=== PATIENT | female | born 1995 | race Caucasian/White ===

== ENCOUNTER 2016-09-28 09:04 | Emergency (ER) | payer SELFPAY ==
--- NOTE | 2016-09-28 09:13 | EDM.PDOC ---
ED HPI GENERAL MEDICAL PROBLEM - General Chief Complaint: ENT Problem Stated Complaint: PT HAS EARACHE Time Seen by Provider: 09/28/16 09:10 - History of Present Illness INITIAL COMMENTS - FREE TEXT/NARRATIVE: HISTORY AND PHYSICAL: History of present illness: Agent 21-year-old female presents with concern of right ear pain and right throat pain she denies fever chills nausea should she awoke with this. Review of systems: As per history of present illness and below otherwise all systems reviewed and negative. Past medical history: As per history of present illness and as reviewed below otherwise noncontributory. Surgical history: As per history of present illness and as reviewed below otherwise noncontributory. Social history: No reported history of drug or alcohol abuse. Family history: As per history of present illness and as reviewed below otherwise noncontributory. Physical exam: HEENT: Atraumatic, normocephalic, pupils reactive, negative for conjunctival pallor or scleral icterus, mucous membranes moist, throat clear, neck supple, nontender, trachea midline. TM normal bilaterally Lungs: Clear to auscultation, breath sounds equal bilaterally, chest nontender. Heart: S1S2, regular, negative for clicks, rubs, or JVD. Abdomen: Soft, nondistended, nontender. Negative for masses or hepatosplenomegaly. Negative for costovertebral tenderness. Pelvis: Stable nontender. Genitourinary: Deferred. Rectal: Deferred. Extremities: Atraumatic, negative for cords or calf pain. Neurovascular unremarkable. Neuro: Awake, alert, oriented. Cranial nerves II through XII unremarkable. Cerebellum unremarkable. Motor and sensory unremarkable throughout. Exam nonfocal. Diagnostics: Rapid strep Therapeutics: None Impression: #1 right otalgia #2 sore throat Definitive disposition and diagnosis as appropriate pending reevaluation and review of above. - Related Data Allergies Allergy/AdvReac Type Severity Reaction Status Date / Time amoxicillin trihydrate Allergy Anaphylactic Verified 09/28/16 09:09 [From Augmentin] Shock Cephalosporins Allergy Other Verified 09/28/16 09:09 ketorolac [From Toradol] Allergy Anaphylactic Verified 09/28/16 09:09 Shock Penicillins Allergy Anaphylactic Verified 09/28/16 09:09 Shock potassium clavulanate Allergy Anaphylactic Verified 09/28/16 09:09 [From Augmentin] Shock Home Meds: Home Meds . 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: , Other (See Below) Other OB/BYN History: miscarriage Neurological History: Reports: Other (See Below) Other Neuro History: syncope Psychiatric History: Reports: Anxiety, Depression Endocrine/Metabolic History: Reports: None Hematologic History: Reports: None Immunologic History: Reports: None Oncologic (Cancer) History: Reports: None Dermatologic History: Reports: None - Infectious Disease History Infectious Disease History: Reports: Chicken Pox Other Infectious Disease History: childhood - Past Surgical History Musculoskeletal Surgical History: Reports: Arthroscopic Procedure Social & Family History - Family History Family Medical History: Noncontributory - Tobacco Use Smoking Status *Q: Current Every Day Smoker Years of Tobacco use: 2 Packs/Tins Daily: 1 Used Tobacco, but Quit: No Second Hand Smoke Exposure: No - Alcohol Use Days Per Week of Alcohol Use: 0 - Recreational Drug Use Recreational Drug Use: No ED ROS GENERAL - Review of Systems Review Of Systems: ROS reveals no pertinent complaints other than HPI. ED EXAM, GENERAL - Physical Exam Exam: See Below (See dictation) Departure - Departure Time of Disposition: 09:13 Disposition: Home, Self-Care 01 Condition: Good Clinical Impression: Otalgia, Sore throat - Discharge Information Forms: ED Department Discharge Additional Instructions: The following information is given to patients seen in the emergency department who are being discharged to home. This information is to outline your options for follow-up care. We provide all patients seen in our emergency department with a follow-up referral. The need for follow-up, as well as the timing and circumstances, are variable depending upon the specifics of your emergency department visit. If you don't have a primary care physician on staff, we will provide you with a referral. We always advise you to contact your personal physician following an emergency department visit to inform them of the circumstance of the visit and for follow-up with them and/or the need for any referrals to a consulting specialist. The emergency department will also refer you to a specialist when appropriate. This referral assures that you have the opportunity for followup care with a specialist. All of these measure are taken in an effort to provide you with optimal care, which includes your followup. Under all circumstances we always encourage you to contact your private physician who remains a resource for coordinating your care. When calling for followup care, please make the office aware that this follow-up is from your recent emergency room visit. If for any reason you are refused follow-up, please contact the [facility] emergency department at and asked to speak to the emergency department charge nurse Sangeeta as directed follow-up primary medical doctor 1 today's return as needed as discussed]
[2016-09-28 10:01] VITALS: BP 139/65
== END 2016-09-28 09:56 | disposition home or self-care (01) ==
LOC: MW.ED 09:04
DX: J02.9 Acute pharyngitis, unspecified (principal); H92.01 Otalgia, right ear; Z88.1 Allergy status to other antibiotic agents; Z88.0 Allergy status to penicillin; F32.9 Major depressive disorder, single episode, unspecified; F41.9 Anxiety disorder, unspecified; Z98.890 Other specified postprocedural states; F17.210 Nicotine dependence, cigarettes, uncomplicated
CPT/HCPCS: 87081; 87880; 99282; 99283

== ENCOUNTER 2017-01-14 16:33 | Emergency (ER) | payer MEDICAID ==
--- NOTE | 2017-01-14 17:17 | EDM.PDOC ---
ED HPI GENERAL MEDICAL PROBLEM - General Chief Complaint: ENT Problem Stated Complaint: PAIN RT SIDE FACE Time Seen by Provider: 01/14/17 16:59 Source of Information: Reports: Patient History Limitations: Reports: No Limitations - History of Present Illness INITIAL COMMENTS - FREE TEXT/NARRATIVE: History of present illness: []Patient's had right-sided facial pain, ear pain and sore throat for 4 days. As her worsening she denies any fevers, chills, nausea or vomiting. There is no drainage from Peter denies any numbness or tingling. Review of systems: As per history of present illness and below otherwise all systems reviewed and negative. Past medical history: As per history of present illness and as reviewed below otherwise noncontributory. Surgical history: As per history of present illness and as reviewed below otherwise noncontributory. Social history: No reported history of drug or alcohol abuse. Family history: As per history of present illness and as reviewed below otherwise noncontributory. Physical exam: General: Well developed, well nourished in NAD HEENT: Atraumatic, normocephalic, pupils reactive, negative for conjunctival pallor or scleral icterus, mucous membranes moist, throat clear, neck supple, nontender, trachea midline. Right TM with purulent fluid behind it EAC is erythematous and very tender on exam. Lungs: Clear to auscultation, breath sounds equal bilaterally, chest nontender. Heart: S1S2, regular, negative for clicks, rubs, or JVD. Abdomen: Soft, nondistended, nontender. Negative for masses or hepatosplenomegaly. Negative for costovertebral tenderness. Pelvis: Stable nontender. Genitourinary: Deferred. Rectal: Deferred. Extremities: Atraumatic, negative for cords or calf pain. Neurovascular unremarkable. Neuro: Awake, alert, oriented. Cranial nerves II through XII unremarkable. Cerebellum unremarkable. Motor and sensory unremarkable throughout. Exam nonfocal. Diagnostics: [] Therapeutics: [] Impression: []Otitis media, otitis externa right Plan: []Z-Madhav Definitive disposition and diagnosis as appropriate pending reevaluation and review of above. Right Ear Pain Score (Numeric/FACES): 7 - Related Data Allergies Allergy/AdvReac Type Severity Reaction Status Date / Time amoxicillin trihydrate Allergy Anaphylactic Verified 01/14/17 16:41 [From Augmentin] Shock Cephalosporins Allergy Other Verified 01/14/17 16:41 ketorolac [From Toradol] Allergy Anaphylactic Verified 01/14/17 16:41 Shock latex Allergy Hives Verified 01/14/17 16:41 Penicillins Allergy Anaphylactic Verified 01/14/17 16:41 Shock potassium clavulanate Allergy Anaphylactic Verified 01/14/17 16:41 [From Augmentin] Shock Home Meds: Home Meds Azithromycin [Zithromax] 250 mg PO DAILY #6 tablet 01/14/17 [Rx] Past Medical History Cardiovascular History: Reports: Syncope Respiratory History: Reports: None Gastrointestinal History: Reports: None Genitourinary History: Reports: Other (See Below) Other Genitourinary History: UTI 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: , Other (See Below) Other OB/BYN History: miscarriage Neurological History: Reports: Other (See Below) Other Neuro History: syncope Psychiatric History: Reports: Anxiety, Depression Endocrine/Metabolic History: Reports: None Hematologic History: Reports: None Immunologic History: Reports: None Oncologic (Cancer) History: Reports: None Dermatologic History: Reports: None - Infectious Disease History Infectious Disease History: Reports: Chicken Pox Other Infectious Disease History: childhood - Past Surgical History HEENT Surgical History: Reports: Adenoidectomy, Tonsillectomy Musculoskeletal Surgical History: Reports: Arthroscopic Procedure Social & Family History - Family History Family Medical History: Noncontributory - Tobacco Use Smoking Status *Q: Current Every Day Smoker Years of Tobacco use: 5 Packs/Tins Daily: 1 Used Tobacco, but Quit: No Second Hand Smoke Exposure: No - Caffeine Use Caffeine Use: Reports: None - Alcohol Use Days Per Week of Alcohol Use: 0 - Recreational Drug Use Recreational Drug Use: No ED ROS ENT - Review of Systems Review Of Systems: See Below (See history of present illness) ED EXAM, ENT - Physical Exam Exam: See Below (See history of present illness) Course - Vital Signs Last Recorded V/S: Last Vital Signs Temp 37.2 C 01/14/17 16:42 Pulse 83 01/14/17 16:42 Resp 16 01/14/17 16:42 BP 138/77 01/14/17 16:42 Pulse Ox 99 01/14/17 16:42 Departure - Departure Time of Disposition: 17:21 Disposition: Home, Self-Care 01 Condition: Good Clinical Impression: Right otitis media Qualifiers: Otitis media type: suppurative Chronicity: acute Recurrence: not specified as recurrent Spontaneous tympanic membrane rupture: without spontaneous rupture Qualified Code(s): H66.001 - Acute suppurative otitis media without spontaneous rupture of ear drum, right ear - Discharge Information Referrals: Erinn Lee ICT QUALITY ASSURANCE ENGINEER [Primary Care Provider] - Forms: ED Department Discharge Additional Instructions: The following information is given to patients seen in the emergency department who are being discharged to home. This information is to outline your options for follow-up care. We provide all patients seen in our emergency department with a follow-up referral. The need for follow-up, as well as the timing and circumstances, are variable depending upon the specifics of your emergency department visit. If you don't have a primary care physician on staff, we will provide you with a referral. We always advise you to contact your personal physician following an emergency department visit to inform them of the circumstance of the visit and for follow-up with them and/or the need for any referrals to a consulting specialist. The emergency department will also refer you to a specialist when appropriate. This referral assures that you have the opportunity for follow-up care with a specialist. All of these measure are taken in an effort to provide you with optimal care, which includes your follow-up. Under all circumstances we always encourage you to contact your private physician who remains a resource for coordinating your care. When calling for follow-up care, please make the office aware that this follow-up is from your recent emergency room visit. If for any reason you are refused follow-up, please contact the [facility] Emergency Department at and asked to speak to the emergency department charge nurse. Zithromax as directed Tylenol Motrin for pain control also use warm packs to the ear follow-up with primary care [facility] [address] [place] [id number]
[2017-01-14 17:47] VITALS: BP 121/63
== END 2017-01-14 17:45 | disposition home or self-care (01) ==
LOC: MW.ED 16:33
DX: H60.91 Unspecified otitis externa, right ear (principal); H66.001 Acute suppurative otitis media without spontaneous rupture of ear drum, right ear; Z88.0 Allergy status to penicillin; Z88.8 Allergy status to other drugs, medicaments and biological substances; F17.210 Nicotine dependence, cigarettes, uncomplicated
CPT/HCPCS: 99282

== ENCOUNTER 2017-04-01 11:17 | Emergency (ER) | payer BC ==
[2017-04-01 11:41] VITALS: BP 128/81
[2017-04-01] MEDS ORDERED: Ibuprofen 600 MG Tab PO ONE (12:00)
--- NOTE | 2017-04-01 13:26 | EDM.PDOC ---
ED HPI GENERAL MEDICAL PROBLEM - General Chief Complaint: General Stated Complaint: SICK Time Seen by Provider: 04/01/17 11:55 Source of Information: Reports: Patient History Limitations: Reports: No Limitations - History of Present Illness INITIAL COMMENTS - FREE TEXT/NARRATIVE: History of present illness: []Patient states she has history of seizure disorder and she feels like she's going to have a seizure.SHe is not on any seizure medications and her last seizure was January 2016. Patient has had an EEG that was read as normal. He should states she has a headache no vomiting or diarrhea no fevers or chills she has had a cough and cold symptoms and her mother has influenza A. Requesting an influenza test. Review of systems: As per history of present illness and below otherwise all systems reviewed and negative. Past medical history: As per history of present illness and as reviewed below otherwise noncontributory. Surgical history: As per history of present illness and as reviewed below otherwise noncontributory. Social history: No reported history of drug or alcohol abuse. Family history: As per history of present illness and as reviewed below otherwise noncontributory. Physical exam: General: Well developed, well nourished in NAD HEENT: Atraumatic, normocephalic, pupils reactive, negative for conjunctival pallor or scleral icterus, mucous membranes moist, throat clear, neck supple, nontender, trachea midline. Lungs: Clear to auscultation, breath sounds equal bilaterally, chest nontender. Heart: S1S2, regular, negative for clicks, rubs, or JVD. Abdomen: Soft, nondistended, nontender. Negative for masses or hepatosplenomegaly. Negative for costovertebral tenderness. Pelvis: Stable nontender. Genitourinary: Deferred. Rectal: Deferred. Extremities: Atraumatic, negative for cords or calf pain. Neurovascular unremarkable. Neuro: Awake, alert, oriented. Cranial nerves II through XII unremarkable. Cerebellum unremarkable. Motor and sensory unremarkable throughout. Exam nonfocal. Diagnostics: []Glucose 88, Nadine a negative Therapeutics: [] Impression: []Viral syndrome Plan: []Follow-up to primary care for further treatment. Definitive disposition and diagnosis as appropriate pending reevaluation and review of above. headache Pain Score (Numeric/FACES): 5 - Related Data Allergies Allergy/AdvReac Type Severity Reaction Status Date / Time amoxicillin trihydrate Allergy Anaphylactic Verified 04/01/17 11:37 [From Augmentin] Shock Cephalosporins Allergy Other Verified 04/01/17 11:37 ketorolac [From Toradol] Allergy Anaphylactic Verified 04/01/17 11:37 Shock latex Allergy Hives Verified 04/01/17 11:37 Penicillins Allergy Anaphylactic Verified 04/01/17 11:37 Shock potassium clavulanate Allergy Anaphylactic Verified 04/01/17 11:37 [From Augmentin] Shock Home Meds: Home Meds . 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: , Other (See Below) Other OB/BYN History: miscarriage Neurological History: Reports: Other (See Below) Other Neuro History: syncope Psychiatric History: Reports: Anxiety, Depression Endocrine/Metabolic History: Reports: None Hematologic History: Reports: None Immunologic History: Reports: None Oncologic (Cancer) History: Reports: None Dermatologic History: Reports: None - Infectious Disease History Infectious Disease History: Reports: Chicken Pox Other Infectious Disease History: childhood - Past Surgical History HEENT Surgical History: Reports: Adenoidectomy, Tonsillectomy Cardiovascular Surgical History: Reports: None Musculoskeletal Surgical History: Reports: Arthroscopic Procedure Social & Family History - Family History Family Medical History: Noncontributory - Tobacco Use Smoking Status *Q: Current Every Day Smoker Years of Tobacco use: 4 Packs/Tins Daily: 0.5 Used Tobacco, but Quit: No Second Hand Smoke Exposure: No - Caffeine Use Caffeine Use: Reports: None - Alcohol Use Days Per Week of Alcohol Use: 0 - Recreational Drug Use Recreational Drug Use: No ED ROS GENERAL - Review of Systems Review Of Systems: See Below (See history of present illness) ED EXAM, GENERAL - Physical Exam Exam: See Below (See history of present illness) Course - Vital Signs Last Recorded V/S: Last Vital Signs Temp 98.5 F 04/01/17 11:38 Pulse 79 04/01/17 11:38 Resp 16 04/01/17 11:38 BP 128/81 04/01/17 11:38 Pulse Ox 98 04/01/17 11:38 - Orders/Labs/Meds Orders: Active Orders 24 hr Category Date Time Status POC Glucose [Blood Glucose Check, Bedside] [] ONETIME Care 04/01/17 11:46 Active Labs: Laboratory Tests 04/01/17 Range/Units 12:12 POC Glucose 88 (60-110) mg/dL Meds: Medications Discontinued Medications Generic Name Dose Route Start Last Admin Trade Name Marcelle PRN Reason Stop Dose Admin Ibuprofen 600 mg 04/01/17 12:00 04/01/17 12:09 Motrin PO 04/01/17 12:01 600 mg ONETIME ONE Administration Departure - Departure Time of Disposition: 13:24 Disposition: Home, Self-Care 01 Condition: Good Clinical Impression: Viral syndrome, Cephalgia - Discharge Information Referrals: Erinn Lee NP [Primary Care Provider] - Additional Instructions: The following information is given to patients seen in the emergency department who are being discharged to home. This information is to outline your options for follow-up care. We provide all patients seen in our emergency department with a follow-up referral. The need for follow-up, as well as the timing and circumstances, are variable depending upon the specifics of your emergency department visit. If you don't have a primary care physician on staff, we will provide you with a referral. We always advise you to contact your personal physician following an emergency department visit to inform them of the circumstance of the visit and for follow-up with them and/or the need for any referrals to a consulting specialist. The emergency department will also refer you to a specialist when appropriate. This referral assures that you have the opportunity for follow-up care with a specialist. All of these measure are taken in an effort to provide you with optimal care, which includes your follow-up. Under all circumstances we always encourage you to contact your private physician who remains a resource for coordinating your care. When calling for follow-up care, please make the office aware that this follow-up is from your recent emergency room visit. If for any reason you are refused follow-up, please contact the [facility] Emergency Department at and asked to speak to the emergency department charge nurse. Use Excedrin migraine or generic for headache. Increase fluids, Follow-up with her primary care for further Care. - My Orders Last 24 Hours: My Active Orders 04/01/17 11:46 POC Glucose [Blood Glucose Check, Bedside] [RC] ONETIME - Assessment/Plan Last 24 Hours: My Active Orders 04/01/17 11:46 POC Glucose [Blood Glucose Check, Bedside] [RC] ONETIME
== END 2017-04-01 13:34 | disposition home or self-care (01) ==
LOC: MW.ED 11:17
DX: B34.9 Viral infection, unspecified (principal); F17.210 Nicotine dependence, cigarettes, uncomplicated; Z88.1 Allergy status to other antibiotic agents; Z88.6 Allergy status to analgesic agent; Z88.8 Allergy status to other drugs, medicaments and biological substances; Z91.040 Latex allergy status; Z88.0 Allergy status to penicillin
CPT/HCPCS: 82962; 87804; 99283; A9270; 99282

== ENCOUNTER 2017-05-17 15:21 | Emergency (ER) | payer BC, OTHER ==
[2017-05-17 15:57] VITALS: BP 137/72
--- NOTE | 2017-05-17 15:59 | EDM.PDOC ---
ED HPI GENERAL MEDICAL PROBLEM - General Chief Complaint: Lower Extremity Injury/Pain Stated Complaint: RT KNEE PAIN Time Seen by Provider: 05/17/17 15:56 Source of Information: Reports: Patient History Limitations: Reports: No Limitations - History of Present Illness INITIAL COMMENTS - FREE TEXT/NARRATIVE: HISTORY AND PHYSICAL: 21-year-old female presenting with right knee pain left elbow pain History of Present Illness: []Patient fell last night at work tripped on a cord from the back of the [employer] cell [employer]. She fell onto her right knee and left elbow . Review of Systems: As per history of present illness and below otherwise all systems reviewed and negative. Past medical history: As per history of present illness and as reviewed below otherwise noncontributory. Surgical history: As per history of present illness and as reviewed below otherwise noncontributory. Social history: No reported history of drug or alcohol abuse. Family history: As per history of present illness and as reviewed below otherwise noncontributory. Physical exam: No loss of consciousness and did not hit her head alert and oriented female answering questions appropriately she states that her left elbow does not hurt as much. HEENT: Atraumatic, normocehpalic, pupils reactive, negative for conjunctival pallor or scleral icterus, mucous membranes moist, throat clear, neck supple, nontender, trachea midline. Lungs: Clear to auscultation, breath sounds equal bilaterally, chest non tender. Heart: S1S2, regular, negative for clicks, rubs, or JVD. Abdomen: Soft, nondistended, nontender. Negative for masses or hepatossplenmegaly. Negative for costovertebral tenderness. Pelvis: Stable nontender. Genitourinary: Deferred. Rectal: Deferred Extremities: Atraumatic, negative for cords or calf pain. Neurovascular unremarkable. Neuro: Awake, alert, oriented. Cranial nerves II through XII unremarkable. Cerebellum unremarkable. Motor and sensory unremarkable throughout. Exam nonfocal. Discussed the results with the patient and friend with her. No fractures were noted on x-rays. Diagnostics: [X-ray right knee History left elbow] Therapeutics: [] Impression: [Contusions knee and elbow] Plan: [Discharged to home Rasta wrap to her knee for comfort measures You were given hydrocodone in the ER For pain at home ibuprofen 3 tablets 3 times daily] Definitive disposition and diagnosis as appropriate pending reevaluation and review of above. Onset: Sudden Duration: Day(s): (1) Location: Reports: Upper Extremity, Left, Lower Extremity, Right Quality: Reports: Throbbing Severity: Moderate Improves with: Reports: None Worsens with: Reports: None right knee Pain Score (Numeric/FACES): 10 - Related Data Allergies Allergy/AdvReac Type Severity Reaction Status Date / Time amoxicillin trihydrate Allergy Anaphylactic Verified 05/17/17 15:54 [From Augmentin] Shock Cephalosporins Allergy Other Verified 05/17/17 15:54 ketorolac [From Toradol] Allergy Anaphylactic Verified 05/17/17 15:54 Shock latex Allergy Hives Verified 05/17/17 15:54 Penicillins Allergy Anaphylactic Verified 05/17/17 15:54 Shock potassium clavulanate Allergy Anaphylactic Verified 05/17/17 15:54 [From Augmentin] Shock Home Meds: Home Meds . 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: , Other (See Below) Other OB/BYN History: miscarriage Neurological History: Reports: Other (See Below) Other Neuro History: syncope Psychiatric History: Reports: Anxiety, Depression Endocrine/Metabolic History: Reports: None Hematologic History: Reports: None Immunologic History: Reports: None Oncologic (Cancer) History: Reports: None Dermatologic History: Reports: None - Infectious Disease History Infectious Disease History: Reports: Chicken Pox Other Infectious Disease History: childhood - Past Surgical History HEENT Surgical History: Reports: Adenoidectomy, Tonsillectomy Cardiovascular Surgical History: Reports: None Musculoskeletal Surgical History: Reports: Arthroscopic Procedure Social & Family History - Family History Family Medical History: Noncontributory - Tobacco Use Smoking Status *Q: Current Every Day Smoker Years of Tobacco use: 4 Packs/Tins Daily: 0.5 Used Tobacco, but Quit: No Second Hand Smoke Exposure: No - Caffeine Use Caffeine Use: Reports: None - Alcohol Use Days Per Week of Alcohol Use: 0 - Recreational Drug Use Recreational Drug Use: No Review of Systems - Review of Systems Review Of Systems: ROS reveals no pertinent complaints other than HPI. ED EXAM, GENERAL - Physical Exam Exam: See Below (see dictation) Course - Vital Signs Last Recorded V/S: Last Vital Signs Temp 36.4 C 05/17/17 15:54 Pulse 84 05/17/17 15:54 Resp 18 05/17/17 15:54 BP 137/72 05/17/17 15:54 Pulse Ox 98 05/17/17 15:54 - Orders/Labs/Meds Orders: Active Orders 24 hr Category Date Time Status Splinting [RC] ASDIRECTED Care 05/17/17 18:10 Ordered Elbow 2V Lt [CR] Stat Exams 05/17/17 16:01 Taken Knee 3V Rt [CR] Stat Exams 05/17/17 15:56 Taken Labs: Laboratory Tests 05/17/17 Range/Units 16:30 Urine HCG, Qual NEGATIVE (NEGATIVE) Meds: Medications Discontinued Medications Generic Name Dose Route Start Last Admin Trade Name Freq PRN Reason Stop Dose Admin Hydrocodone Bitart/Acetaminophen 1 tab 05/17/17 16:59 [place] 325-5 Mg PO 05/17/17 17:00 ONETIME ONE Departure - Departure Time of Disposition: 18:12 Disposition: Home, Self-Care 01 Condition: Good Clinical Impression: Contusion of knee - Discharge Information Referrals: Erinn Lee GUM PULLER [Primary Care Provider] - Forms: ED Department Discharge Additional Instructions: The following information is given to patients seen in the emergency department who are being discharged to home. This information is to outline your options for follow-up care. We provide all patients seen in our emergency department with a follow-up referral. The need for follow-up, as well as the timing and circumstances, are variable depending upon the specifics of your emergency department visit. If you don't have a primary care physician on staff, we will provide you with a referral. We always advise you to contact your personal physician following an emergency department visit to inform them of the circumstance of the visit and for follow-up with them and/or the need for any referrals to a consulting specialist. The emergency department will also refer you to a specialist when appropriate. This referral assures that you have the opportunity for followup care with a specialist. All of these measure are taken in an effort to provide you with optimal care, which includes your followup. Under all circumstances we always encourage you to contact your private physician who remains a resource for coordinating your care. When calling for followup care, please make the office aware that this follow-up is from your recent emergency room visit. If for any reason you are refused follow-up, please contact the [facility] emergency department at and asked to speak to the emergency department charge nurse. May take ibuprofen [id number] 3 tablets 3 times a day for your discomfort Elevate and ice your knee times a day Rasta wrap will help with the edema and give you more support Follow-up with your primary care provider in the next 3 days for reevaluation - My Orders Last 24 Hours: My Active Orders 05/17/17 15:56 Knee 3V Rt [CR] Stat 05/17/17 16:01 Elbow 2V Lt [CR] Stat 05/17/17 18:10 Splinting [RC] ASDIRECTED - Assessment/Plan Last 24 Hours: My Active Orders 05/17/17 15:56 Knee 3V Rt [CR] Stat 05/17/17 16:01 Elbow 2V Lt [CR] Stat 05/17/17 18:10 Splinting [RC] ASDIRECTED
[2017-05-17] MEDS ORDERED: Acetaminophen/HYDROcodone 325-5 MG Tab PO ONE (16:59)
--- NOTE | 2017-05-18 13:41 | CR ---
EXAM DATE: 05/17/17 PATIENT'S AGE: 21 Patient: VITALY BETANCOURT Facility: [place], [place] Site . Site : 1996 Study: XRay Knee Right [id number]/25/2018 5:37:39 PM Ordering Physician: Doctor Villar Final Report: Pain fall 3 views of the right knee. FINDINGS: Normal alignment. No acute fractures. No effusions. Mild soft tissue swelling anteriorly. Dictated by Chayito Mays MD @ May 17 2017 5:41PM (Electronic Signature) Report Signed by Proxy. EMERY
--- NOTE | 2017-05-18 13:42 | CR ---
EXAM DATE: 05/17/17 PATIENT'S AGE: 21 Patient: VITALY BETANCOURT Facility: [place], [place] Site . Site : 1996 Study: XRay Extremity Left elbow [id number]/25/2018 5:38:06 PM Ordering Physician: Doctor Villar Final Report: INDICATION: Pain. Fall. TECHNIQUE: Two views left elbow. FINDINGS: Mild soft tissue swelling left elbow and forearm. Left elbow negative for fracture, dislocation or effusion. Remainder negative. Dictated by Juvenal Schultz MD @ May 17 2017 5:44PM (Electronic Signature) Report Signed by Proxy. EMERY
== END 2017-05-17 18:29 | disposition home or self-care (01) ==
LOC: MW.ED 15:21
DX: S80.01XA Contusion of right knee, initial encounter (principal); S50.02XA Contusion of left elbow, initial encounter; F17.210 Nicotine dependence, cigarettes, uncomplicated; Z88.0 Allergy status to penicillin; Z88.1 Allergy status to other antibiotic agents; Z88.6 Allergy status to analgesic agent; Z91.040 Latex allergy status; W18.09XA Striking against other object with subsequent fall, initial encounter
CPT/HCPCS: 73070; 73562; 81025; 99284; A9270; 99283

== ENCOUNTER 2020-12-18 13:34 | Emergency (ER) | payer BC, OTHER ==
[2020-12-18] MEDS ORDERED: Sodium Chloride 0.9% 1,000 ML IV ONE (13:37)
--- NOTE | 2020-12-18 13:45 | EDM.PDOC ---
ED HPI GENERAL MEDICAL PROBLEM - General Chief Complaint: Neurological Problem Stated Complaint: EMS Time Seen by Provider: 12/18/20 13:40 Source of Information: Reports: Patient History Limitations: Reports: No Limitations - History of Present Illness INITIAL COMMENTS - FREE TEXT/NARRATIVE: HISTORY AND PHYSICAL: History of present illness: Patient is a 25-year-old female who presents to the emergency room via EMS after seizure-like activity. Patient states that she has a longstanding history of seizures and had been previously placed on Keppra. She stopped taking the [place] about 6 years ago as she felt they were making her seizures more frequent. Her last seizure was 4 years ago. She has stopped seeing neurology 5+ years ago. Today she woke up and felt healthy and well, no complaints. HEAD PACKAGER states she was sitting in the car with her friend, when she felt a numb sensation all over (which is typical for her seizure on-set). "I told my friend that I didn't feel good, the next thing I know I woke up to her telling me I had a seizure". Witness stated that her seizure activity was approximately 45 seconds, thought was was going to wake up, but then had another seizure like episode for 15 seconds. She didn't hit her head or have any LOC. Patient was not incontinent of urine or stool. States she now feels tired and slightly dizzy. Patient denies any fever, chills, headache, change in vision, chest pain, back pain, shortness of breath or cough. Denies any abdominal pain, nausea, vomiting, diarrhea, constipation or dysuria. Has not noted any blood in urine or stool. Patient has been eating and drinking appropriately. No recent travel or sick contacts. Denies any alcohol or drug abuse. Patient states she has not felt well in the past 6 months and has contributed this to her seizure disorder. December 24 she has an appointment with her PCP in [facility], to schedule appointment for MRI and neurology. Review of systems: As per history of present illness and below otherwise all systems reviewed and negative. Past medical history: As per history of present illness and as reviewed below otherwise noncontributory. Surgical history: As per history of present illness and as reviewed below otherwise noncontributory. Social history: See social history for further information Family history: As per history of present illness and as reviewed below otherwise noncontributory. Physical exam: General: Well developed and well nourished 25 year old female. Alert and orientated x 3. Nontoxic in appearance and in no acute distress. Vital signs are stable and have been reviewed by me. Nursing notes were reviewed. HEENT: Atraumatic, normocephalic, pupils equal and reactive bilaterally, negative for conjunctival pallor or scleral icterus, mucous membranes moist, TMs normal bilaterally, throat clear, teeth intact, no oral lesions/injury, neck supple, nontender, trachea midline. No drooling or trismus noted. No meningeal signs. No hot potato voice noted. Lungs: Clear to auscultation bilaterally. No wheezes, rales, or rhonchi. Chest nontender. Normal work of breathing, no accessory muscles used. Heart: S1S2, regular rate and rhythm without overt murmur, gallops, or rubs. No JVD. No peripheral edema Abdomen: Soft, nondistended, nontender. Normoactive bowel sounds. Negative for masses or costovertebral tenderness. Skin: Intact, warm, dry. No lesions or rashes noted. Hematologic: No petechiae or purpra. Mucosa appropriate color and normal nail bed color and refill. Extremities: Atraumatic, moves all extremities per self without difficulty or deficits, negative for cords or calf pain. Neurovascular unremarkable. Neuro: Awake, alert, oriented. Cranial nerves II through XII unremarkable. Cerebellum unremarkable. Motor and sensory unremarkable throughout. Exam nonfocal. Psychiatric: Mood and affect are appropriate. Normal thought process. Answering questions appropriately. Please note that the patient was seen and evaluated during the 2019 SARS-CoV-2 novel coronavirus pandemic period. Community viral transmission is ongoing at time of this encounter and the emergency department is operating under pandemic response procedures. Medical Decision Making: Patient is a 25-year-old female who presents to the emergency room after having seizure-like activity. She states this is witnessed by her friend, stating it lasted 45 seconds and 15 seconds. She states she does have a history of seizures, was diagnosed when she was 15 or 17. Was briefly placed on Keppra but took herself off of this medication.she states her last seizure has been 4 years ago. Over the past 6 months she has not felt well and thought it was related to her "seizure disorder". She did make an appointment with her primary care provider at [facility] in [place], they plan on scheduling her to see neurology and have an MRI. Physical exam is unremarkable. Her vital signs are stable. She is alert, oriented and answering questions fully and appropriately. Patient's lab work is unremarkable. Negative lactate. She has +1 bacteria in her urine although has no urinary symptoms. We will add a culture. Head CT shows no acute findings. We did discuss medication management. She is agreeable to being restarted on her Keppra, will give her a small amount as she would like to discuss changing this medication with her doctor when she goes to [place] next week. Loading dose given here. Tylenol was given for a mild headache. Mom is at bedside. I have talked with the patient about today's findings, in addition to providing specific details for plan of care. Reassessment at the time of disposition demonstrates that the patient is in no acute distress. The patient is stable for discharge, counseling was provided and we discussed in great detail signs and symptoms that would prompt them to return to the Emergency Department. Medication, follow up and supportive care measures were reviewed and discussed. Voices understanding and is agreeable to plan of care. Denies any further questions or concerns at this time. Diagnostics: CBC, CMP, Lactate, UA, HCGU, Head CT Therapeutics: IV fluids, Keppra PO, Tylenol Prescription: Keppra Impression: Seizure activity Plan: 1. You were evaluated today on an emergent basis. Your labs, head CT, chest x- ray, and EKG are within normal limits. Its recommended that you don't drive until you are seizure free for 6 months (in [place] law). Please start your Keppra, one tab twice daily until you see your primary care provider on December 24. 2. You can alternate Tylenol and ibuprofen as needed for pain and fever management. 3. We encourage you to follow up with neurology for re-evaluation and further care/management. 4. If your symptoms should worsen, new symptoms develop or any of the signs and symptoms we discussed should arise please return to the emergency room or call 911 (if needed). Definitive disposition and diagnosis as appropriate pending reevaluation and review of above. Headache Pain Score (Numeric/FACES): 7 - Related Data Allergies Allergy/AdvReac Type Severity Reaction Status Date / Time amoxicillin trihydrate Allergy Anaphylactic Verified 02/25/18 15:54 [From Augmentin] Shock Cephalosporins Allergy Other Verified 05/17/17 15:54 ketorolac [From Toradol] Allergy Anaphylactic Verified 05/17/17 15:54 Shock latex Allergy Hives Verified 05/17/17 15:54 Penicillins Allergy Anaphylactic Verified 05/17/17 15:54 Shock potassium clavulanate Allergy Anaphylactic Verified 05/17/17 15:54 [From Augmentin] Shock Home Meds: Home Meds levETIRAcetam [Keppra] 500 mg PO BID #30 tablet 12/18/20 [Rx] Past Medical History HEENT History: Reports: None Cardiovascular History: Reports: Syncope Respiratory History: Reports: None Gastrointestinal History: Reports: None Genitourinary History: Reports: Other (See Below) Other Genitourinary History: UTI CHIN STRAP MAKER History: Reports: , Other (See Below) Other CHIN STRAP MAKER History: miscarriage Musculoskeletal History: Reports: None Neurological History: Reports: Other (See Below) Other Neuro History: syncope Psychiatric History: Reports: Anxiety, Depression Endocrine/Metabolic History: Reports: None Hematologic History: Reports: None Immunologic History: Reports: None Oncologic (Cancer) History: Reports: None Dermatologic History: Reports: None - Infectious Disease History Infectious Disease History: Reports: Chicken Pox Other Infectious Disease History: childhood - Past Surgical History HEENT Surgical History: Reports: Adenoidectomy, Tonsillectomy Cardiovascular Surgical History: Reports: None Musculoskeletal Surgical History: Reports: Arthroscopic Procedure Social & Family History - Family History Family Medical History: No Pertinent Family History - Caffeine Use Caffeine Use: Reports: None ED ROS GENERAL - Review of Systems Review Of Systems: Comprehensive ROS is negative, except as noted in HPI. ED EXAM, NEURO - Physical Exam Exam: See Below (See dictation) Course - Vital Signs Last Recorded V/S: Last Vital Signs Temp 96.0 F L 12/18/20 15:47 Pulse 68 12/18/20 15:47 Resp 15 12/18/20 15:47 BP 126/80 12/18/20 15:47 Pulse Ox 98 12/18/20 15:47 - Orders/Labs/Meds Orders: Active Orders 24 hr Category Date Time Status Blood Glucose Check, Bedside [RC] ONETIME Care 12/18/20 13:38 Active Labs: Laboratory Tests 12/18/20 12/18/20 12/18/20 Range/Units 13:40 13:40 13:40 WBC 8.05 (4.0-11.0) K/uL RBC 5.19 (4.30-5.90) M/uL Hgb 16.0 (12.0-16.0) g/dL Hct 43.6 (36.0-46.0) % MCV 84.0 (80.0-98.0) fL MCH 30.8 (27.0-32.0) pg MCHC 36.7 (31.0-37.0) g/dL RDW Std Deviation 37.4 (28.0-62.0) fl RDW Coeff of [place] 12 (11.0-15.0) % Plt Count 161 (150-400) K/uL MPV 10.20 (7.40-12.00) fL Neut % (Auto) 60.6 (48.0-80.0) % Lymph % (Auto) 28.1 (16.0-40.0) % [place] % (Auto) 6.2 (0.0-15.0) % Eos % (Auto) 4.7 (0.0-7.0) % Baso % (Auto) 0.4 (0.0-1.5) % Neut # (Auto) 4.9 (1.4-5.7) K/uL Lymph # (Auto) 2.3 (0.6-2.4) K/uL [place] # (Auto) 0.5 (0.0-0.8) K/uL Eos # (Auto) 0.4 (0.0-0.7) K/uL Baso # (Auto) 0.0 (0.0-0.1) K/uL Nucleated RBC % 0.0 /100WBC Nucleated RBCs # 0 K/uL Sodium 140 (136-145) mmol/L Potassium 3.6 (3.5-5.1) mmol/L Chloride 104 (98-107) mmol/L Carbon Dioxide 26.3 (21.0-32.0) mmol/L BUN 13 (7.0-18.0) mg/dL Creatinine 0.8 (0.6-1.0) mg/dL Est Cr Clr Drug Dosing 93.64 mL/min Estimated GFR (MDRD) > 60.0 ml/min Glucose 110 H (74-106) mg/dL POC Glucose (70-99) mg/dL Lactic Acid (0.4-2.0) mmol/L Calcium 8.9 (8.5-10.1) mg/dL Total Bilirubin 1.0 (0.2-1.0) mg/dL AST 25 (15-37) IU/L ALT 38 (14-63) IU/L Alkaline Phosphatase 60 (46-116) U/L Total Protein 7.1 (6.4-8.2) g/dL Albumin 4.0 (3.4-5.0) g/dL Globulin 3.1 (2.6-4.0) g/dL Albumin/Globulin Ratio 1.3 (0.9-1.6) HCG, Qual NEGATIVE (NEG) Urine Color Urine Appearance Urine pH (5.0-8.0) Ur Specific [place] (1.001-1.035) Urine Protein (NEGATIVE) mg/dL Urine Glucose (UA) (NEGATIVE) mg/dL Urine Ketones (NEGATIVE) mg/dL Urine Occult Blood (NEGATIVE) Urine Nitrite (NEGATIVE) Urine Bilirubin (NEGATIVE) Urine Urobilinogen (<2.0) EU/dL Ur Leukocyte Esterase (NEGATIVE) Urine RBC (0-2/HPF) Urine WBC (0-5/HPF) Ur Epithelial Cells (NONE-FEW) Urine Bacteria (NEGATIVE) 12/18/20 12/18/20 12/18/20 Range/Units 13:46 13:55 14:50 WBC (4.0-11.0) K/uL RBC (4.30-5.90) M/uL Hgb (12.0-16.0) g/dL Hct (36.0-46.0) % MCV (80.0-98.0) fL MCH (27.0-32.0) pg MCHC (31.0-37.0) g/dL RDW Std Deviation (28.0-62.0) fl RDW Coeff of [place] (11.0-15.0) % Plt Count (150-400) K/uL MPV (7.40-12.00) fL Neut % (Auto) (48.0-80.0) % Lymph % (Auto) (16.0-40.0) % [place] % (Auto) (0.0-15.0) % Eos % (Auto) (0.0-7.0) % Baso % (Auto) (0.0-1.5) % Neut # (Auto) (1.4-5.7) K/uL Lymph # (Auto) (0.6-2.4) K/uL [place] # (Auto) (0.0-0.8) K/uL Eos # (Auto) (0.0-0.7) K/uL Baso # (Auto) (0.0-0.1) K/uL Nucleated RBC % /100WBC Nucleated RBCs # K/uL Sodium (136-145) mmol/L Potassium (3.5-5.1) mmol/L Chloride (98-107) mmol/L Carbon Dioxide (21.0-32.0) mmol/L BUN (7.0-18.0) mg/dL Creatinine (0.6-1.0) mg/dL Est Cr Clr Drug Dosing mL/min Estimated GFR (MDRD) ml/min Glucose (74-106) mg/dL POC Glucose 100 H (70-99) mg/dL Lactic Acid 1.1 (0.4-2.0) mmol/L Calcium (8.5-10.1) mg/dL Total Bilirubin (0.2-1.0) mg/dL AST (15-37) IU/L ALT (14-63) IU/L Alkaline Phosphatase (46-116) U/L Total Protein (6.4-8.2) g/dL Albumin (3.4-5.0) g/dL Globulin (2.6-4.0) g/dL Albumin/Globulin Ratio (0.9-1.6) HCG, Qual (NEG) Urine Color YELLOW Urine Appearance CLEAR Urine pH 6.0 (5.0-8.0) Ur Specific [place] 1.025 (1.001-1.035) Urine Protein 30 H (NEGATIVE) mg/dL Urine Glucose (UA) NEGATIVE (NEGATIVE) mg/dL Urine Ketones NEGATIVE (NEGATIVE) mg/dL Urine Occult Blood TRACE-INTACT H (NEGATIVE) Urine Nitrite NEGATIVE (NEGATIVE) Urine Bilirubin NEGATIVE (NEGATIVE) Urine Urobilinogen 0.2 (<2.0) EU/dL Ur Leukocyte Esterase NEGATIVE (NEGATIVE) Urine RBC 0-1 (0-2/HPF) Urine WBC 0-2 (0-5/HPF) Ur Epithelial Cells FEW (NONE-FEW) Urine Bacteria 1+ H (NEGATIVE) Meds: Medications Discontinued Medications Generic Name Dose Route Start Last Admin Trade Name Marcelle PRN Reason Stop Dose Admin Acetaminophen 650 mg 12/18/20 15:36 12/18/20 15:41 Acetaminophen 325 Mg Tab PO 12/18/20 15:37 650 mg NOW ONE Administration Sodium Chloride 1,000 mls @ 999 mls/hr 12/18/20 13:37 12/18/20 13:47 Normal Saline IV 12/18/20 14:37 999 mls/hr STAT ONE Administration Levetiracetam 1,000 mg 12/18/20 15:31 12/18/20 15:35 Levetiracetam 500 Mg Tab PO 12/18/20 15:32 1,000 mg NOW STA Administration Departure - Departure Time of Disposition: 15:35 Disposition: Home, Self-Care 01 Clinical Impression: Seizure-like activity - Discharge Information Prescriptions: levETIRAcetam [Keppra] 500 mg PO BID #30 tablet Instructions: Seizure, Adult, [id number] Referrals: PCP,None [Primary Care Provider] - Forms: ED Department Discharge Additional Instructions: The following information is given to patients seen in the emergency department who are being discharged to home. This information is to outline your options for follow-up care. We provide all patients seen in our emergency department with a follow-up referral. The need for follow-up, as well as the timing and circumstances, are variable depending upon the specifics of your emergency department visit. If you don't have a primary care physician on staff, we will provide you with a referral. We always advise you to contact your personal physician following an emergency department visit to inform them of the circumstance of the visit and for follow-up with them and/or the need for any referrals to a consulting specialist. The emergency department will also refer you to a specialist when appropriate. This referral assures that you have the opportunity for follow-up care with a specialist. All of these measure are taken in an effort to provide you with optimal care, which includes your follow-up. Under all circumstances we always encourage you to contact your private physician who remains a resource for coordinating your care. When calling for follow-up care, please make the office aware that this follow-up is from your recent emergency room visit. If for any reason you are refused follow-up, please contact the [facility] Emergency Department at and asked to speak to the emergency department charge nurse. [facility] Specialty Care - Neurology Professional Building [address] [place] [address], [address] [place] [address] Thank you for choosing the [facility] emergency department in [place] for your medical needs today. It was a pleasure caring for you. Today you were seen in the emergency department for seizure activity. 1. You were evaluated today on an emergent basis. Your labs, head CT, chest x- ray, and EKG are within normal limits. Its recommended that you don't drive until you are seizure free for 6 months (in [place] law). Please start your Keppra, one tab twice daily until you see your primary care provider on December 24. 2. You can alternate Tylenol and ibuprofen as needed for pain and fever management. 3. We encourage you to follow up with neurology for re-evaluation and further care/management. 4. If your symptoms should worsen, new symptoms develop or any of the signs and symptoms we discussed should arise please return to the emergency room or call 911 (if needed). Sepsis Event Note (ED) - Focused Exam Vital Signs: Vital Signs Temp Pulse Resp BP Pulse Ox 12/18/20 15:47 96.0 F L 68 15 126/80 98 12/18/20 13:46 96 F L 85 15 137/84 96 - My Orders Last 24 Hours: My Active Orders 12/18/20 13:38 Blood Glucose Check, Bedside [RC] ONETIME - Assessment/Plan Last 24 Hours: My Active Orders 12/18/20 13:38 Blood Glucose Check, Bedside [RC] ONETIME
[2020-12-18 14:42] LABS: BLOOD UREA NITROGEN,BUN 13 mg/dL (7.0-18.0); CARBON DIOXIDE,CO2 26.3 mmol/L (21.0-32.0); CHLORIDE,CL 104 mmol/L (98-107); GLUCOSE RANDOM 110 mg/dL (74-106); POTASSIUM,K 3.6 mmol/L (3.5-5.1); SODIUM,NA 140 mmol/L (136-145)
--- NOTE | 2020-12-18 14:50 | CR ---
Indication: Seizure activity Technique: Chest 1 view Comparison: February 11, 2015 Findings/Impression: Cardiovascular and mediastinum: Heart size and vasculature are normal in caliber and appearance. Mediastinum is within normal limits. Lungs and pleural space: Lungs are clear. No sign of infiltrate or mass. No sign of pleural effusion. No pneumothorax. Bones and soft tissues: No significant findings. Dictated by Lashonda Ponce MD @ 12/18/2020 2:50:15 PM (Electronically Signed)
--- NOTE | 2020-12-18 15:13 | CT ---
INDICATION: Seizure activity. COMPARISON: None. TECHNIQUE: CT of the head without IV contrast. Coronal and sagittal reconstructions are provided. FINDINGS: No intracranial hemorrhage, mass effect, or evidence of acute infarct. No midline shift. No abnormal extra-axial fluid collections. Normal caliber ventricular system. Orbits and extraocular muscles are symmetric. The paranasal sinuses and mastoid air cells are clear. No acute fracture identified. Soft tissues are unremarkable. IMPRESSION: : No acute intracranial findings. Please note that all CT scans at this facility use dose modulation, iterative reconstruction, and/or weight-based dosing when appropriate to reduce radiation dose to as low as reasonably achievable. Dictated by Dora Garcia MD @ 12/18/2020 3:13:15 PM (Electronically Signed)
[2020-12-18] MEDS ORDERED: levETIRAcetam 500 MG Tab PO STA (15:31)
[2020-12-18] MEDS ORDERED: Acetaminophen 325 MG Tab PO ONE (15:36)
[2020-12-18 16:54] VITALS: BP 128/67; PULSE 76
--- NOTE | 2020-12-18 17:40 | PCM.EKG ---
#1 Interpretation EKG Date: 12/18/20 Time: 13:54 Rhythm: NSR Rate (Beats/Min): 76 [place]: Normal P-Wave: Present QRS: Normal ST-T: Normal QT: Normal Comparison: No Change (02/11/15) EKG Interpretation Comments: Sinus Rhythm
== END 2020-12-18 16:00 | disposition home or self-care (01) ==
LOC: MW.ED 13:34
DX: R25.9 Unspecified abnormal involuntary movements (principal); Z88.0 Allergy status to penicillin; Z88.1 Allergy status to other antibiotic agents; Z88.5 Allergy status to narcotic agent; Z91.040 Latex allergy status
CPT/HCPCS: 36415; 70450; 71045; 80053; 81001; 82947; 83605; 84703; 85025; 93005; 99285; A9270; J7030

== ENCOUNTER 2021-10-22 14:19 | Emergency (ER) | payer MEDICAID, OTHER ==
[2021-10-22 15:29] LABS: CORONAVIRUS COVID-19 NAA NEGATIVE (NEGATIVE); INFLUENZA A NAA NEGATIVE (NEGATIVE); INFLUENZA B NAA NEGATIVE (NEGATIVE)
[2021-10-22 17:04] LABS: CARBON DIOXIDE,CO2 27.3 mmol/L (21.0-32.0); POTASSIUM,K 3.9 mmol/L (3.5-5.1)
[2021-10-22] MEDS ORDERED: Iopamidol 755 MG/ML 500 ML Multipack Bottle IVPUSH STA (17:55)
[2021-10-22 18:54] VITALS: BP 142/81; PULSE 90
== END 2021-10-22 18:52 | disposition home or self-care (01) ==
LOC: MW.ED 14:19
DX: J18.9 Pneumonia, unspecified organism (principal); Z88.0 Allergy status to penicillin; Z88.1 Allergy status to other antibiotic agents; Z91.040 Latex allergy status; Z88.8 Allergy status to other drugs, medicaments and biological substances; Z79.899 Other long term (current) drug therapy; Z90.49 Acquired absence of other specified parts of digestive tract; Z20.822 Contact with and (suspected) exposure to COVID-19
CPT/HCPCS: 0240U; 36415; 71045; 71275; 80053; 84484; 84703; 85025; 85379; 93005; 99285; Q9967; 93010; 99284